=== PATIENT | male | born 1960 | race Caucasian/White ===

== ENCOUNTER 2021-07-15 18:44 | Emergency (ER) | payer OTHER ==
[2021-07-15] MEDS ORDERED: Sodium Chloride 0.9% 10 ML Syringe FLUSH PRN (19:05)
[2021-07-15] MEDS ORDERED: HYDROmorphone 1 MG/ML Syringe IVPUSH ONE (19:07)
[2021-07-15] MEDS ORDERED: Ondansetron 4 MG/2 ML SDV IVPUSH ONE (19:07)
[2021-07-15] MEDS ORDERED: Sodium Chloride 0.9% 1,000 ML IV SCH (19:15)
[2021-07-15 19:51] LABS: CHLORIDE,CL 101 mmol/L (98-107); SODIUM,NA 143 mmol/L (136-145)
[2021-07-15 19:55] LABS: ANION GAP 13.9 mmol/L (5-15)
[2021-07-15] MEDS ORDERED: Iopamidol 612 MG/ML 100 ML Bottle IVPUSH ONE (20:20)
[2021-07-15] MEDS ORDERED: Potassium Chloride 20 MEQ Tab.ER PO ONE (22:35)
[2021-07-15] MEDS ORDERED: Take Home: Acetaminophen/HYDROcodone 325-5 MG, 5 Tab Pack PO ONE (22:37)
--- NOTE | 2021-07-16 07:58 | CT ---
[id number] CT/CT Abdomen Pelvis W IV EXAM: CT Abdomen Pelvis W IV CLINICAL DATA: ABDOMINAL PAIN ELEVATED WHITE BLOOD CELL COUNT COMPARISON: No previous similar exam is available. FINDINGS: The gallbladder is moderately distended The gallbladder wall is normal The appendix is normal. There is no free air or free fluid. There is no bowel distention The pelvis shows no mass or adenopathy The liver and spleen, kidneys and adrenals, pancreas and aorta otherwise are unremarkable IMPRESSION: MILD DISTENTION OF GALLBLADDER CONSIDER ULTRASOUND IF NEEDED Hu Talley MD 07/16/21 0756 Thank you for allowing us to participate in the care of your patient.
--- NOTE | 2021-07-16 09:25 | EDM.PDOC ---
ED HPI GENERAL MEDICAL PROBLEM - General Chief Complaint: Abdominal Pain Stated Complaint: SEVERE ABDOMINAL PAIN Time Seen by Provider: 07/15/21 19:00 Source of Information: Reports: Patient History Limitations: Reports: No Limitations - History of Present Illness INITIAL COMMENTS - FREE TEXT/NARRATIVE: Pt. presents to ER with complaints of upper abdominal discomfort. Pt. states that the symptoms started abruptly this evening. He states that the discomfort radiates into the back. He states he is nauseated, has not vomited. Pt. denies any fever or chills. Denies any substernal chest pain. He denies any lightheadedness. No diaphoresis. Pt. states that he has never experienced discomfort like this in the past. He denies any jaundice. No shamika colored stools or dark urine. Onset: Today Onset Date: 07/16/21 Location: Reports: Abdomen whole abdomen Pain Score (Numeric/FACES): 2 - Related Data Allergies Allergy/AdvReac Type Severity Reaction Status Date / Time No Known Allergies Allergy Verified 07/15/21 19:05 Home Meds: Home Meds Potassium Chloride 10 meq PO BID 07/16/21 [History] amLODIPine Besylate [Amlodipine Besylate] 10 mg PO DAILY 07/16/21 [History] hydroCHLOROthiazide [Hydrochlorothiazide] 25 mg PO DAILY 07/16/21 [History] Past Medical History Cardiovascular History: Reports: Hypertension Social & Family History - Tobacco Use Tobacco Use Status *Q: Unknown Ever Used Tobacco ED ROS GENERAL - Review of Systems Review Of Systems: See Below Constitutional: Reports: No Symptoms HEENT: Reports: No Symptoms Respiratory: Reports: No Symptoms Cardiovascular: Reports: No Symptoms Endocrine: Reports: No Symptoms GI/Abdominal: Reports: Abdominal Pain. Denies: Black Stool, Bloody Stool, Constipation, Distension, Hematemesis, Hematochezia, Melena : Reports: No Symptoms Musculoskeletal: Reports: No Symptoms Skin: Reports: No Symptoms Neurological: Reports: No Symptoms Psychiatric: Reports: No Symptoms Hematologic/Lymphatic: Reports: No Symptoms Immunologic: Reports: No Symptoms ED EXAM, GENERAL - Physical Exam Exam: See Below Exam Limited By: No Limitations General Appearance: Alert Throat/Mouth: Normal Inspection, Normal Lips, Normal Teeth, Normal Oropharynx, No Airway Compromise Head: Atraumatic, Normocephalic Neck: Normal Inspection, Supple, Non-Tender Respiratory/Chest: No Respiratory Distress, Lungs Clear, Normal Breath Sounds, No Accessory Muscle Use, Chest Non-Tender Cardiovascular: Normal Peripheral Pulses, Regular Rate, Rhythm Peripheral Pulses: 4+: Radial (L) GI/Abdominal: Soft, No Organomegaly, No Distention, Tender (Male) Exam: Deferred Rectal (Males) Exam: Deferred Back Exam: Normal Inspection, Full Range of Motion Extremities: Normal Inspection, Normal Range of Motion, Non-Tender, No Pedal Edema, Normal Capillary Refill Neurological: Alert, Oriented, CN II-XII Intact, Normal Cognition, Normal Reflexes, No Motor/Sensory Deficits Psychiatric: Normal Affect, Normal Mood Course - Vital Signs Last Recorded V/S: Last Vital Signs Temp 36.3 C 07/15/21 19:05 Pulse 67 07/15/21 19:05 Resp 16 07/15/21 19:05 BP 142/86 H 07/15/21 19:05 Pulse Ox 97 07/15/21 19:05 - Orders/Labs/Meds Orders: Active Orders 24 hr Category Date Time Status Peripheral IV Insertion Adult [OM.PC] Routine Oth 07/15/21 19:06 Ordered Labs: Laboratory Tests 07/15/21 07/15/21 07/15/21 Range/Units 19:24 19:24 19:24 WBC 14.8 H (4.0-10.0) x10^3/uL RBC 5.25 (4.5-6.0) x10^6/uL Hgb 15.7 (14.0-18.0) g/dL Hct 45.0 (40.0-52.0) % MCV 85.7 (78.0-93.0) fL MCH 29.9 (26.0-32.0) pg MCHC 34.9 (32.0-36.0) g/dL RDW Coeff of Helen 12.1 (10.0-15.0) % Plt Count 324 (130-400) x10^3/uL Immature Gran % (Auto) 0.20 (0.00-0.43) % Neut % (Auto) 83.2 H (50.0-80.0) % Lymph % (Auto) 11.1 L (25.0-50.0) % [place] % (Auto) 4.3 (2.0-11.0) % Eos % (Auto) 0.9 (0.0-4.0) % Baso % (Auto) 0.3 (0.2-1.2) % Neut # (Auto) 12.3 H (1.8-7.7) x10^3/uL Lymph # (Auto) 1.6 (1.0-4.8) x10^3/uL [place] # (Auto) 0.6 (0.0-0.8) x10^3/uL Eos # (Auto) 0.1 (0.0-0.5) x10^3/uL Baso # (Auto) 0.1 (0.0-0.2) x10^3/uL Immature Gran # (Auto) 0.03 (0.00-0.07) x10^3/uL PT 10.4 (9.9-12.5) SEC INR 0.9 L (2.0-3.5) Sodium 143 (136-145) mmol/L Potassium 2.9 L* (3.5-5.1) mmol/L Chloride 101 (98-107) mmol/L Carbon Dioxide 31 (21-32) mmol/L Anion Gap 13.9 (5-15) mmol/L BUN 21 H (7-18) mg/dL Creatinine 1.0 (0.70-1.30) mg/dL Est Cr Clr Drug Dosing TNP Estimated GFR (MDRD) > 60 Glucose 164 H (70-99) mg/dL Calcium 8.8 (8.5-10.1) mg/dL Corrected Calcium 8.7 (8.5-10.1) mg/dL Phosphorus 2.5 L (2.6-4.7) mg/dL Magnesium 2.1 (1.8-2.4) mg/dL Total Bilirubin 0.6 (0.2-1.0) mg/dL AST 19 (15-37) U/L ALT 41 (16-63) U/L Alkaline Phosphatase 95 (46-116) U/L C-Reactive Protein 0.4 (<=0.9) mg/dL Total Protein 8.2 (6.4-8.2) g/dL Albumin 4.1 (3.4-5.0) g/dL Globulin 4.1 Albumin/Globulin Ratio 1.00 Amylase 64 (25-115) U/L Lipase 171 (73-393) U/L Urine Color (YELLOW) Urine Appearance (CLEAR) Urine pH (5.0-8.0) Ur Specific [place] Urine Protein (NEGATIVE) mg/dL Urine Glucose (UA) (NEGATIVE) mg/dL Urine Ketones (NEGATIVE) mg/dL Urine Occult Blood (NEGATIVE) Urine Nitrite (NEGATIVE) Urine Bilirubin (NEGATIVE) Urine Urobilinogen (0.2) EU/dL Ur Leukocyte Esterase (NEGATIVE) 07/15/21 Range/Units 22:05 WBC (4.0-10.0) x10^3/uL RBC (4.5-6.0) x10^6/uL Hgb (14.0-18.0) g/dL Hct (40.0-52.0) % MCV (78.0-93.0) fL MCH (26.0-32.0) pg MCHC (32.0-36.0) g/dL RDW Coeff of Helen (10.0-15.0) % Plt Count (130-400) x10^3/uL Immature Gran % (Auto) (0.00-0.43) % Neut % (Auto) (50.0-80.0) % Lymph % (Auto) (25.0-50.0) % [place] % (Auto) (2.0-11.0) % Eos % (Auto) (0.0-4.0) % Baso % (Auto) (0.2-1.2) % Neut # (Auto) (1.8-7.7) x10^3/uL Lymph # (Auto) (1.0-4.8) x10^3/uL [place] # (Auto) (0.0-0.8) x10^3/uL Eos # (Auto) (0.0-0.5) x10^3/uL Baso # (Auto) (0.0-0.2) x10^3/uL Immature Gran # (Auto) (0.00-0.07) x10^3/uL PT (9.9-12.5) SEC INR (2.0-3.5) Sodium (136-145) mmol/L Potassium (3.5-5.1) mmol/L Chloride (98-107) mmol/L Carbon Dioxide (21-32) mmol/L Anion Gap (5-15) mmol/L BUN (7-18) mg/dL Creatinine (0.70-1.30) mg/dL Est Cr Clr Drug Dosing Estimated GFR (MDRD) Glucose (70-99) mg/dL Calcium (8.5-10.1) mg/dL Corrected Calcium (8.5-10.1) mg/dL Phosphorus (2.6-4.7) mg/dL Magnesium (1.8-2.4) mg/dL Total Bilirubin (0.2-1.0) mg/dL AST (15-37) U/L ALT (16-63) U/L Alkaline Phosphatase (46-116) U/L C-Reactive Protein (<=0.9) mg/dL Total Protein (6.4-8.2) g/dL Albumin (3.4-5.0) g/dL Globulin Albumin/Globulin Ratio Amylase (25-115) U/L Lipase (73-393) U/L Urine Color Yellow (YELLOW) Urine Appearance Clear (CLEAR) Urine pH 7.0 (5.0-8.0) Ur Specific [place] 1.015 Urine Protein Negative (NEGATIVE) mg/dL Urine Glucose (UA) Negative (NEGATIVE) mg/dL Urine Ketones Negative (NEGATIVE) mg/dL Urine Occult Blood Negative (NEGATIVE) Urine Nitrite Negative (NEGATIVE) Urine Bilirubin Negative (NEGATIVE) Urine Urobilinogen 0.2 (0.2) EU/dL Ur Leukocyte Esterase Negative (NEGATIVE) Meds: Medications Discontinued Medications Generic Name Dose Route Start Last Admin Trade Name Alicja PRN Reason Stop Dose Admin Hydrocodone Bitart/Acetaminophen 1 packet 07/15/21 22:37 07/15/21 22:53 Take Home: Acetaminophen/Hydrocodone 325-5 Mg, 5 Tab Pack PO 07/15/21 22:38 1 packet ONETIME ONE Administration Hydromorphone HCl 1 mg 07/15/21 19:07 07/15/21 19:27 Hydromorphone 1 Mg/Ml Syringe IVPUSH 07/15/21 19:08 1 mg ONETIME ONE Administration Sodium Chloride 1,000 mls @ 1,000 mls/hr 07/15/21 19:15 Normal Saline IV ASDIRECTED OLMAN Iopamidol 100 ml 07/15/21 20:20 07/15/21 20:31 Iopamidol 612 Mg/Ml 100 Ml Bottle IVPUSH 07/15/21 20:21 100 ml ONETIME ONE Administration Ondansetron HCl 4 mg 07/15/21 19:07 07/15/21 19:25 Ondansetron 4 Mg/2 Ml Sdv IVPUSH 07/15/21 19:08 4 mg ONETIME ONE Administration Potassium Chloride 40 meq 07/15/21 22:35 07/15/21 22:45 Potassium Chloride 20 Meq Tab.Er PO 07/15/21 22:36 40 meq ONETIME ONE Administration Sodium Chloride 10 ml 07/15/21 19:05 Sodium Chloride 0.9% 10 Ml Syringe FLUSH ASDIRECTED PRN Keep Vein Open - Radiology Interpretation Free Text/Narrative:: CT abdomen and pelvis with IV contrast obtained, showing enlargement of the gallbladder with wall thickening. No obvious infectious process or free fluid/air noted. Departure - Departure Time of Disposition: 21:39 Disposition: Home, Self-Care 01 Clinical Impression: Cholecystitis - Discharge Information Instructions: Acetaminophen; Hydrocodone tablets or capsules, Cholelithiasis, Hypokalemia Referrals: Rogers Barnes PA-C [Primary Care Provider] - Forms: ED Department Discharge Additional Instructions: You will be contacted regarding a gallbladder ultrasound on Saturday. Ibuprofen 200mg 3 tabs every 6 hours as needed for pain Lortab 5/325mg 1 every 4-6 hours as needed for pain not helped by the ibuprofen Minimize consumption of fatty foods, such as milk, butter, cheese, fried food. Your potassium was found to be decreased, and it appears that it has been for some time in the clinic. Increase your potassium to 20meq (2 tabs) twice daily.\ Follow-up with Rogers in 7-10 days for recheck of labs/post ER follow-up Sepsis Event Note (ED) - Evaluation Sepsis Screening Result: No Definite Risk - Problem List Review Problem List Initiated/Reviewed/Updated: Yes - My Orders Last 24 Hours: My Active Orders 07/15/21 19:06 Peripheral IV Insertion Adult [OM.PC] Routine - Assessment/Plan Last 24 Hours: My Active Orders 07/15/21 19:06 Peripheral IV Insertion Adult [OM.PC] Routine Plan: You will be contacted regarding a gallbladder ultrasound on Saturday. Ibuprofen 200mg 3 tabs every 6 hours as needed for pain Lortab 5/325mg 1 every 4-6 hours as needed for pain not helped by the ibuprofen Minimize consumption of fatty foods, such as milk, butter, cheese, fried food. Your potassium was found to be decreased, and it appears that it has been for so me time in the clinic. Increase your potassium to 20meq (2 tabs) twice daily.\ Follow-up with Rogers in 7-10 days for recheck of labs/post ER follow-up
== END 2021-07-15 23:03 | disposition home or self-care (01) ==
LOC: VM.ED 18:44
DX: K81.9 Cholecystitis, unspecified (principal); I10 Essential (primary) hypertension
CPT/HCPCS: 74177; 80053; 81003; 82150; 83690; 83735; 84100; 85025; 85610; 86140; 96374; 96375; 99284; A9270; J1170; J2405; Q9967

== ENCOUNTER 2022-03-23 14:30 | Observation (INO) | payer OTHER ==
[2022-03-23] MEDS ORDERED: Sodium Chloride 0.9% 1,000 ML IV ONE (14:47)
[2022-03-23] MEDS ORDERED: Meclizine 25 MG Tab PO ONE (14:48)
[2022-03-23] MEDS ORDERED: Ondansetron 4 MG/2 ML SDV IVPUSH ONE (14:48)
[2022-03-23] MEDS ORDERED: Sodium Chloride 0.9% 10 ML Syringe FLUSH PRN (14:48)
[2022-03-23 15:32] LABS: CHLORIDE,CL 102 mmol/L (98-107); SODIUM,NA 140 mmol/L (136-145)
[2022-03-23 15:33] LABS: ANION GAP 12.6 mmol/L (5-15); ESTIMATED GFR 101 mL/min (>=60)
[2022-03-23] MEDS ORDERED: Potassium Chloride Riders 20 MEQ in Premix Bag 1 BAG IV ONE (15:33)
[2022-03-23] MEDS ORDERED: Ondansetron 4 MG/2 ML SDV IVPUSH PRN (17:47)
[2022-03-23] MEDS: Sodium Chloride 0.9% 1,000 ML IV SCH ×2 (18:00→23:42)
[2022-03-23] MEDS: POTASSIUM 10 MEQ PO SCH (20:12)
[2022-03-23] MEDS ORDERED: POTASSIUM CHLORIDE 10 MEQ PO SCH (21:00)
[2022-03-23] MEDS ORDERED: amLODIPine 10 MG Tab PO SCH (21:00)
[2022-03-24] MEDS: Sodium Chloride 0.9% 1,000 ML IV SCH (07:41)
[2022-03-24] MEDS: POTASSIUM 10 MEQ PO SCH (08:08)
[2022-03-24 08:16] LABS: ANION GAP 9.1 mmol/L (5-15)
[2022-03-24] MEDS ORDERED: Dextrose 5%-0.9% NaCl with KCl 1,000 ML IV SCH (08:45)
[2022-03-24] MEDS ORDERED: amLODIPine 10 MG Tab **OWN MED PO SCH (09:00)
[2022-03-24] MEDS ORDERED: Hydrochlorothiazide 25 MG Tab PO SCH (09:00)
[2022-03-24] MEDS ORDERED: HYDROCHLOROTHIAZIDE 25 MG PO SCH (09:00)
== END 2022-03-24 12:32 | disposition home or self-care (01) ==
LOC: VM.ED 14:30 → VM.MS 17:28
PROVIDERS: ADMIT Physician Assistant; ATTEND Physician Assistant
DX: E87.6 Hypokalemia (principal); I10 Essential (primary) hypertension; Z79.899 Other long term (current) drug therapy
CPT/HCPCS: 36415; 70450; 80053; 85025; 93005; 93010; 96361; 96365; 96375; 99284; 99285-25; A9270-GY; G0378; J2405; J3480; J7030